=== PATIENT | male | born 1995 | race Caucasian/White ===

== ENCOUNTER 2019-08-10 00:55 | Inpatient (IN) | payer OTHER ==
[2019-08-10] VITALS (25 sets, daily range): BP systolic 97–145; BP diastolic 40–77
[~2019-08-10] VITALS: Ht 172.7 cm; Wt 76.2 kg
[2019-08-10] MEDS ORDERED: LORazepam Inj 2mg/ml 1ml IV ONE ×4 (01:00→01:30)
--- NOTE | 2019-08-10 01:00 | NUR ---
ED Nurse Note: Patient brought in by RA from home c/o seizure. As per EMS, seizure x3 at home witnessed by his s/o. Patient seized x2 during triage. Not in any distress. ERMD at bedside.
--- NOTE | 2019-08-10 01:05 | NUR ---
ED Nurse Note: IV line established. Blood specimen collected and sent to lab.
[2019-08-10] MEDS ORDERED: Phenytoin 1,000 MG in NS 275 ML IVPB ONE (01:30)
[2019-08-10 01:46] LABS: BASOPHILS % (AUTO) 1.5 % (0.0-2.0); EOSINOPHILS % (AUTO) 1.3 % (0.0-3.0); HEMATOCRIT 40.2 % (42.0-52.0); HEMOGLOBIN 14.4 G/DL (14.2-18.0); LYMPHOCYTES % (AUTO) 34.5 % (20.0-45.0); MEAN CORPUSCULAR VOLUME 90 FL (80-99); MONOCYTES % (AUTO) 11.2 % (1.0-10.0); NEUTROPHILS % (AUTO) 51.5 % (45.0-75.0); PLATELET COUNT 242 K/UL (150-450); RED BLOOD COUNT 4.45 M/UL (4.70-6.10); RED CELL DISTRIBUTION WIDTH 10.1 % (11.6-14.8); WHITE BLOOD COUNT 7.2 K/UL (4.8-10.8)
[2019-08-10 02:00] LABS: ANION GAP 12 mmol/L (5-15); BLOOD UREA NITROGEN 15 mg/dL (7-18); CALCIUM 8.3 MG/DL (8.5-10.1); CARBON DIOXIDE 25 MMOL/L (21-32); CHLORIDE 107 MMOL/L (98-107); CREATININE 1.3 MG/DL (0.55-1.30); POTASSIUM 3.8 MMOL/L (3.5-5.1); SODIUM 143 MMOL/L (136-145)
[2019-08-10 02:06] LABS: ALANINE AMINOTRANSFERASE 36 U/L (12-78); ALBUMIN 3.7 G/DL (3.4-5.0); ALBUMIN/GLOBULIN RATIO 1.1 (1.0-2.7); ALKALINE PHOSPHATASE 42 U/L (46-116); ASPARTATE AMINO TRANSFERASE 17 U/L (15-37); BILIRUBIN,TOTAL 0.2 MG/DL (0.2-1.0)
--- NOTE | 2019-08-10 03:15 | NUR ---
ED Nurse Note: Pt seen sleeping in bed. Not in any distress. no episode of seizure at this time. Will cont to monitor.
--- NOTE | 2019-08-10 03:59 | Emergency Room Report ---
History of Present Illness General Chief Complaint: Seizure Source: Patient, Friend, Medical Record Present Illness HPI 24-year-old male presents to ED status post seizure. Had a witnessed seizure at rehab facility. Initially partial but then per EMS was full tonic-clonic. Had 3 seizures in route. Was given 5 mg Versed. On arrival patient is postictal. Friend at bedside states that patient does have seizure history and history of anxiety. Takes Depakote and phenobarbital. Is compliant with his medications. No other alcohol or drug use per friend. No other aggravating relieving factors. Denies any other associated symptoms Allergies: Coded Allergies: AMOXICILLIN (Verified Allergy, Unknown, 08/03/19) Patient History Past Medical History: seizures, psych hx Past Surgical History: none Pertinent Family History: none Social History: Reports: drug use; Denies: smoking, alcohol use Immunizations: UTD Reviewed Nursing Documentation: PMH: Agreed; PSxH: Agreed Nursing Documentation-PMH Hx Hypertension: No Hx Pacemaker: No Hx Asthma: No Hx COPD: No Hx Diabetes: No Hx Cancer: No Hx Gastrointestinal Problems: Yes Hx Dialysis: No Hx Neurological Problems: Yes - SEIZURE Hx Cerebrovascular Accident: No Hx Seizures: Yes Review of Systems All Other Systems: limited Physical Exam Vital Signs Date Time Temp Pulse Resp B/P (MAP) Pulse Ox O2 Delivery O2 Flow Rate FiO2 08/10/19 00:52 98.4 123 26 133/67 (89) 93 Non-Rebreather 15.0 Sp02 EP Interpretation: reviewed, normal General Appearance: GCS 15, non-toxic, Postictal Head: normocephalic, atraumatic Eyes: bilateral eye normal inspection, bilateral eye PERRL ENT: hearing grossly normal, normal pharynx, no angioedema, normal voice Neck: full range of motion, supple/symm/no masses Respiratory: chest non-tender, lungs clear, normal breath sounds, speaking full sentences Cardiovascular #1: regular rate, rhythm, no edema Cardiovascular #2: 2+ carotid (R), 2+ carotid (L), 2+ radial (R), 2+ radial (L) , 2+ dorsalis pedis (R), 2+ dorsalis pedis (L) Gastrointestinal: normal bowel sounds, non tender, soft, non-distended, no guarding, no rebound Rectal: deferred Genitourinary: normal inspection, no CVA tenderness Musculoskeletal: back normal, normal range of motion, gait/station normal, non- tender Neurologic: other - postictal Psychiatric: other - postictal Reflexes: 3+ bicep (R), 3+ bicep (L), 3+ tricep (R), 3+ tricep (L), 3+ knee (R) , 3+ knee (L) Skin: no rash Lymphatic: no adenopathy Procedures Critical Care Time Critical Care Time i. I feel this is a highly complex case requiring extensive working including EKG/Rhythm strip, Xray/CT/US, Blood/urine lab work, repeat exams while in ED, and administration of strong opiates/narcotics for pain control, admission to hospital or close patient follow up. Total time: 45 min bedside evaluation and treatment excludes procedures (EKG). Reason for critical care: intractable seizures Possible complications: hypotension, hypertension, NE, shock, arrhythmias, metabolic acidosis, end organ damage, respiratory failure. Interventions: labs, IVFS, EKG, ativan multiple doses, dilantin loading dose Course: Presenting status post seizure. Multiple seizures in route. Given Versed. During assessment patient has multiple additional seizures. Given multiple doses of Ativan and loading dose of Dilantin before seizures finally subside. Consultations: nursing staff, EMS, family Performed by: Dr Brock Tolerated well condition = serious j. because of unstable vital signs this patient had a condition that could potentially threaten life or limb. I feel this is a critical patient who required my full attention while patient was considered critical. Total Critical Care Time excluding procedures was greater than 45 minutes Medical Decision Making Diagnostic Impression: Primary Impression: Intractable seizures ER Course Hospital Course 24-year-old M presents to ED status post seizure. Differential diagnosis includes- breakthrough seizure, alcohol abuse, noncompliance with medication Clinical course Patient placed on stretcher. Initial history and physical I ordered labs, IV fluids, EKG Patient has additional seizures in ED. Had been given Versed in field for 3 seizures in route. We gave multiple doses of Ativan without resolution. Gave additional Ativan along with loading dose Dilantin Labs-electrolytes okay, no leukocytosis noted, hemoglobin/hematocrit stable. EKG - NSR, no acute ischemic changes interpreted by me Case discussed with and he agreed to accept the patient to his service for further care and support. i. I feel this is a highly complex case requiring extensive working including EKG/Rhythm strip, Xray/CT/US, Blood/urine lab work, repeat exams while in ED, and administration of strong opiates/narcotics for pain control, admission to hospital or close patient follow up. Diagnosis - intractable seizure admitted to telemetry in serious condition Labs Test 08/10/19 01:25 White Blood Count 7.2 K/UL (4.8-10.8) Red Blood Count 4.45 M/UL (4.70-6.10) Hemoglobin 14.4 G/DL (14.2-18.0) Hematocrit 40.2 % (42.0-52.0) Mean Corpuscular Volume 90 FL (80-99) Mean Corpuscular Hemoglobin 32.3 PG (27.0-31.0) Mean Corpuscular Hemoglobin Concent 35.8 G/DL (32.0-36.0) Red Cell Distribution Width 10.1 % (11.6-14.8) Platelet Count 242 K/UL (150-450) Mean Platelet Volume 8.1 FL (6.5-10.1) Neutrophils (%) (Auto) 51.5 % (45.0-75.0) Lymphocytes (%) (Auto) 34.5 % (20.0-45.0) Monocytes (%) (Auto) 11.2 % (1.0-10.0) Eosinophils (%) (Auto) 1.3 % (0.0-3.0) Basophils (%) (Auto) 1.5 % (0.0-2.0) Sodium Level 143 MMOL/L (136-145) Potassium Level 3.8 MMOL/L (3.5-5.1) Chloride Level 107 MMOL/L (98-107) Carbon Dioxide Level 25 MMOL/L (21-32) Anion Gap 12 mmol/L (5-15) Blood Urea Nitrogen 15 mg/dL (7-18) Creatinine 1.3 MG/DL (0.55-1.30) Estimat Glomerular Filtration Rate > 60 mL/min (>60) Glucose Level 97 MG/DL (74-106) Calcium Level 8.3 MG/DL (8.5-10.1) Total Bilirubin 0.2 MG/DL (0.2-1.0) Aspartate Amino Transf (AST/SGOT) 17 U/L (15-37) Alanine Aminotransferase (ALT/SGPT) 36 U/L (12-78) Alkaline Phosphatase 42 U/L (46-116) Total Protein 7.1 G/DL (6.4-8.2) Albumin 3.7 G/DL (3.4-5.0) Globulin 3.4 g/dL Albumin/Globulin Ratio 1.1 (1.0-2.7) Acetaminophen Level < 2 MCG/ML (10-30) Valproic Acid (Depakene) Level 80 MCG/ML (50-100) Phenobarbital Level 9.9 ug/mL (15-40) Serum Alcohol < 3 mg/dL EKG Diagnostic Results Rate: tachycardiac Rhythm: NSR ST Segments: no acute changes ASA given to the pt in ED: No Rhythm Strip Diag. Results EP Interpretation: yes Rhythm: NSR, no PVC's, no ectopy Last Vital Signs Date Time Temp Pulse Resp B/P (MAP) Pulse Ox O2 Delivery O2 Flow Rate FiO2 08/10/19 01:00 97.9 102 20 132/77 97 Room Air 08/10/19 00:52 15.0 Status: improved Disposition: ADMITTED INPATIENT Condition: Serious Referrals: NOT CHOSEN IPA/,REFERRING (PCP) Robert Brock MD Aug 10, 2019 03:59
--- NOTE | 2019-08-10 04:04 | NUR ---
[facility] [phone] Jose- Adjunct Psychology Faculty Member [phone]
[2019-08-10] MEDS ORDERED: NKM (04:42)
--- NOTE | 2019-08-10 05:46 | NUR ---
ED Nurse Note: Pt seen sleeping in bed. No episodes of seizure at this time. VSS. Will cont to monitor.
--- NOTE | 2019-08-10 07:16 | NUR ---
HAND-OFF: Report given to Sheree LANDRUM. Endorsed plan of care.
--- NOTE | 2019-08-10 07:56 | NUR ---
ED Nurse Note: Telephone endorsement given to DIALLO Lainez for continuity of care.
--- NOTE | 2019-08-10 08:10 | NUR ---
TRANSFER TO FLOOR: Patient transferred to TELE as ordered, per ERMD . Report given to DIALLO RM. Belongings and medications given tO PT.
--- NOTE | 2019-08-10 08:10 | NUR ---
NURSE NOTES: Received report from DIALLO Bentley @ ER. Per Sheree, the patient got total dose of 12mg Ativan and Phenytoin IVPB. Asked the nurse whether the patient is safe to be transferred to tele as the patient's last seizure was @ 0650. Per Sheree, the patient is stable to be transferred. The patient's belongings checked with the patient and two nurses and signed by two nurses. Medical, surgical, allergy, and social history was not able to be taken from the patient as the patient is still drowsy and feeing of aura. Admitting EKG and medication reconciliation done @ ER. The patient has R AC 18G intact and patent. Initial vital signs were taken and will obtain admission order from Dr. Reid. The patient's skin is intact. Will continue plan of care.
[2019-08-10] MEDS ORDERED: LORazepam Inj 2mg/ml 1ml IV SCH ×2 (08:53→20:45)
[2019-08-10] MEDS ORDERED: LORazepam Inj 2mg/ml 1ml IV PRN ×3 (09:00→09:15)
--- NOTE | 2019-08-10 09:00 | NUR ---
HAND-OFF: Report given to DIALLO Carias @ ICU who is receiving nurse for the patient. The patient got safely transferred to [facility] with PETROLEUM INSPECTOR SUPERVISOR members support. The patient is transported with non-rebreather mask. No seizure noted upon transferring the patient. Full report given to DIALLO Carias. The patient's IV intact. The patient's skin intact. The patient belongings checked. Endorsed plan of care.
--- NOTE | 2019-08-10 09:00 | NUR ---
NURSE NOTES: 0820: pt having seizure, RN called for help, and to initiate CLOTH DOUBLING MACHINE OPERATOR, stayed with pt 0824: Vitals obtained: 116/71 BP, HR 70, SpO2 100% NC 5L, CLOTH DOUBLING MACHINE OPERATOR in room 0825: pt has another seizure, on monitor SR HR 87 seizure lasts for 2 mins 0827: Blood sugar is checked 86 0830: Pt is SR on monitor 0828: DIALLO Devi called Dr. Reid exchange to recommend transfer order and medication 0831: DIALLO Todd also contacted Dr. Reid to get transfer order and request medications 0831: CLOTH DOUBLING MACHINE OPERATOR and primary RN transferred patient to SDU room 236, pt placed on non-rebreather, attached to crash cart monitor, 0833: patient having another seizure, pt turned to right side, pt on monitor and non-rebreather 0837: pt experiencing another seizure, lasting 40 seconds; vitals signs: 128/57, 100% on non-rebreather, NSR, HR 65 0839: no seizure noted, pt able to move legs, able to turn body, pt becoming more alert 0840: Pt awake, team reorienting pt. 0841: Dr. Reid ordered transfer to SDU 0842: Patient able to verbally respond and asking for water. Non-rebreather removed 0845: Patient stating he is having an aura 0847: Patient having a seizure, pt turned on right side, CLOTH DOUBLING MACHINE OPERATOR team called back to room, pt placed on crash cart monitor, pt back on non-rebreather, seizure lasting 3 minutes. 0853: Dr. Reid in room ordered transfer of pt to ICU and gave order for Ativan 2mg IVP now, and Ativan 2mg IVP Q10M PRN for seizures, orders entered by DIALLO Devi. also ordered Dr. Cuadra for physician consult 0856: Ativan 2mg IVP once given 0857: Pt lightly shaking, pt transferred to ICU, followed by CLOTH DOUBLING MACHINE OPERATOR team and primary nurse
--- NOTE | 2019-08-10 09:10 | NUR ---
NURSE NOTES: Report recieved from DIALLO Lainez. Patient is awake and talkative, he is responding to verbal commands and articulates sentences accurate and with no slur, \ he is able to state his name and bithday, he is feeling tired and drowsy. states he need to be on a plane, and reoriented to being in a hospital and is in ICU, patient remains on nasal cannula at 4L/min saturtion at 100% with RR of 15-18. heart reate remains at 71 in sinus rhythm with BP of 108/50. patient has a right AC 22G IV saline lovks and another on the left ac 22G.
--- NOTE | 2019-08-10 11:30 | NUR ---
NURSE NOTES: Patient is awake and talkative, he denies any pain, he is able to utilize the cellular phone and spoke with this mother, she is on the way to the hospital, temperature is 97.5 orally.
--- NOTE | 2019-08-10 13:17 | NUR ---
NURSE NOTES: Dr. Nance at the bedside speaking with patient, ordered to place order for Lexapro 20mg to be given daily and begin this afternoon.
--- NOTE | 2019-08-10 13:56 | NUR ---
CASE MANAGEMENT: 08/09/2019 24 Y/O MALE FROM HOME BIBA CC: SEIZURE SI: INTRACTABLE SEIZURES 98.5 123 26 133/67 93% NRB @15 L ACETAMINOPHEN LEVEL ALCOHOL BLOOD SERUM DRUG SCREEN + BARBS, + BENZOS PHENOBARBITAL LEVEL VALPROIC LEVEL IS: SEIZURE PRECAUTIONS NACL 1L X1 ATIVAN 4 MG IV X3 DILANTIN 1000 MG IVPB ~~~~~TELEMETRY 2 EAST.
--- NOTE | 2019-08-10 14:15 | NUR ---
NURSE NOTES: Dr. Cuadra office called and notified of consultation placed by Dr. Reid, no verbal orders given at this time.
--- NOTE | 2019-08-10 14:24 | NUR ---
*-* INSURANCE *-* ALL CLINICALS AND REVIEWS HAVE BEEN FAXED TO: [employer] AUTH#[id number] PROTOTYPE MACHINIST PABLO Jain P:[phone] EXT [id number] F:[phone] (FAX ALL CLINICALS) Addendum: 08/10/19 at 1437 by BARRY MARQUEZ LVN LVN PROTOTYPE MACHINIST FABIOLA ANGULO T: [phone] EXT:[id number]
[2019-08-10] MEDS: LORazepam Inj 2mg/ml 1ml IV PRN ×3 (14:31→23:28)
--- NOTE | 2019-08-10 14:37 | NUR ---
TRANSFER UPDATE LEFT [facility] FOR [facility] ADOBE DEVELOPER REQUESTING ASSISTANCE WITH TRANSFER TO HIGHER LEVEL OF CARE AWAIT RETURN CALL AND INSTRUCTIONS
[2019-08-10] MEDS ORDERED: levETIRAcetam 1,000mg/NS100ml 100 ML IVPB SCH (15:00)
--- NOTE | 2019-08-10 15:20 | NUR ---
NURSE NOTES: several seizure noted lasting approximally 3 minutes, 2.5 minutes and 1 minute, all seizure are followed with a postictal state, he is confused but able to comminute with a slight delay but accurately. in all seizures they are noted to have pupils reactive and brisk at 5-6, he remains breathing with pauses and saturates at 94-99%,
--- NOTE | 2019-08-10 15:41 | NUR ---
NURSE NOTES: Another seizure noted to last approximately 60 secondas, was shaking for of entire body for 45 seconds and started to become more relaxed after 15 seconds, pupils remains reactive and brisk bilataerally. remains on nasal cannula at 4L/min with saturations at 97% and HR at 89. BP is 113/53 and RR are 30.
--- NOTE | 2019-08-10 18:00 | Consultation ---
DATE OF CONSULTATION: 08/10/2019 CONSULTING PHYSICIAN: Keanu Nance M.D. REFERRING PHYSICIAN: Tobin Reid M.D. HISTORY OF PRESENT ILLNESS: This is a 24-year-old male with a history of multiple medical issues including seizure disorder, psychiatric history who has been admitted to the hospital due to seizure, which was witnessed in the facility. The patient is not in the ICU. The patient was alert, was able to answer the questions appropriately. The patient is having anxiety, depressed mood, anhedonia, worthlessness. He has anxiety disorder. The patient is denying any suicide attempts in the past. Denies psychiatric hospitalization. PAST MEDICAL HISTORY: Seizure. ALLERGIES: Amoxicillin. SUBSTANCE ABUSE HISTORY: No known history of illicit drug use or alcohol. MENTAL STATUS EXAMINATION: Alert, oriented times self, place, situation, and date. Mood is anxious. Affect is constricted, congruent with mood. Thought process is concrete. Thought content, no suicidal or homicidal ideation. Cognition is impaired. Insight and judgment is impaired. LABORATORY DATA: The labs are positive for benzodiazepine and barbiturates. ASSESSMENT: [place] I Anxiety disorder. Rule out major depressive disorder. [place] II Deferred. [place] III Seizure. [place] IV Low. [place] V 50. PLAN: 1. The patient is reluctant to be on SSRI's. 2. Continue Ativan p.r.n. 3. The patient should be discharged when medically cleared. 4. We will start the patient on mirtazapine. Keanu Nance M.D. DR: MAGDA JOB#: [id number] CC:
--- NOTE | 2019-08-10 19:30 | History and Physical Report ---
DATE OF ADMISSION: 08/10/2019 HISTORY OF PRESENT ILLNESS: This is elderly 24-year-old male who came to the emergency room for having drug abuse and was found altered mental status and having recurrent seizure. The patient was tried to given Ativan. The patient is nonverbal, lethargic. Resuscitation team was at bedside. PAST MEDICAL HISTORY: Drug abuse. Drug screen positive for barbiturates and cocaine. PHYSICAL EXAMINATION: VITAL SIGNS: Current blood pressure 110/61, pulse 77, respirations 16, and temperature 98.5. HEENT: Eyes are closed. Pupils are slightly dilated. NECK: Supple. CHEST: Bilaterally decreased breath sounds. CARDIOVASCULAR: Regular rhythm. ABDOMEN: Soft. Positive bowel sounds, nontender. EXTREMITIES: No edema. NEUROLOGICAL: Lethargic and having recurrent seizure. GENITOURINARY: Deferred. LABORATORY AND DIAGNOSTIC DATA: White count 7.2, hemoglobin 14, hematocrit 40, platelets are 242. Chemistry panel is unremarkable. BUN 15, creatinine 1.3, sodium 143, potassium 3.8. LFTs are normal. ASSESSMENT AND PLAN: 1. Altered mental status. 2. Acute recurrent seizure. PLAN: We will admit . Ativan 2 mg IV q.4h . Consider Neurology consult and Psych consult. I just heard from the nurse that the patient is more awake and wants food. Ralph Reid M.D. DR: Clarice JOB#: [id number] CC:
--- NOTE | 2019-08-10 19:44 | NUR ---
NURSE NOTES: Received patient from DIALLO Carias. Will continue plan of care.
--- NOTE | 2019-08-10 19:45 | NUR ---
HAND-OFF: Report given to DIALLO Joshi.
--- NOTE | 2019-08-10 20:00 | NUR ---
NURSE NOTES: Patient is awake and alert. Continues to have seizures lasting 3-8 minutes. 2mg Ativan given but not effective. Left page and urgent message for Dr. Reid for additional orders.
[2019-08-10] MEDS: levETIRAcetam 1,000mg/NS100ml 100 ML IVPB SCH (20:15)
--- NOTE | 2019-08-10 20:37 | NUR ---
NURSE NOTES: Left urgent message for Dr. Reid's urgent line for patient's continuous seizures. Awaiting reply.
--- NOTE | 2019-08-10 20:40 | NUR ---
NURSE NOTES: Patient continues to have seizures. EEG is being done, attempted to contact Dr. Cuadra to see patient and/or for orders. Also left an urgent message to Dr. Pritchett covering for Dr. Cuadra. Awaiting call back.
--- NOTE | 2019-08-10 20:52 | NUR ---
NURSE NOTES: Spoke with Dr. Marr, he orders 2mg Ativan Q2h. Also Dr. Reid ordered Dilantin 500mg IV. Orders are in. Patient continues to have seizures. Bed low and locked. Call light within reach. Suctioning provided. Mother at bedside.
[2019-08-10] MEDS ORDERED: levETIRAcetam 500mg/NS100ml 100 ML IVPB SCH (21:00)
[2019-08-10] MEDS ORDERED: Phenytoin 500 MG in NS 110 ML IVPB ONE (21:00)
--- NOTE | 2019-08-10 22:00 | NUR ---
NURSE NOTES: Dilantin 500mg IV running. Having EEG performed. No seizures at the moment.
[2019-08-11] VITALS (27 sets, daily range): BP systolic 90–139; BP diastolic 35–81
--- NOTE | 2019-08-11 | NUR ---
NURSE NOTES: Patient is started to have seizures again; lasting 3-8 minutes per episode. Another 2mg Ativan given. Mother at bedside. Provided safety measures. Will continue to monitor.
[2019-08-11] MEDS: LORazepam Inj 2mg/ml 1ml IV PRN ×7 (00:37→19:52)
--- NOTE | 2019-08-11 02:00 | NUR ---
NURSE NOTES: Patient continues to have seizures. Dr. Reid is aware. New orders of Ativan are in. Will continue to monitor. Mother remains at bedside. Safety measures in place.
--- NOTE | 2019-08-11 02:14 | NUR ---
NURSE NOTES: Called and Spoke with Franklin at this time. Notified him that Patient continues to have Seizures. Patient is already on 2 mg Ativan Q2hr, scheduled Keppra 1,000mg Q12hrs, Dilantin 500mg has already been given as he previously ordered. MD Ordered to Change Ativan order. New order, Ativan 3mg Q 2HR for seizures. Orders read back and confirmed by MD.
--- NOTE | 2019-08-11 04:00 | NUR ---
NURSE NOTES: No seizures at this time since 0230. Patient is now resting comfortably. Vital signs are stable. Will continue to monitor. Mother in waiting room
[2019-08-11 05:41] LABS: BASOPHILS % (AUTO) 0.9 % (0.0-2.0); EOSINOPHILS % (AUTO) 1.1 % (0.0-3.0); HEMATOCRIT 41.2 % (42.0-52.0); HEMOGLOBIN 14.4 G/DL (14.2-18.0); MEAN CORPUSCULAR VOLUME 92 FL (80-99); MONOCYTES % (AUTO) 7.1 % (1.0-10.0); PLATELET COUNT 224 K/UL (150-450); RED BLOOD COUNT 4.47 M/UL (4.70-6.10); RED CELL DISTRIBUTION WIDTH 10.6 % (11.6-14.8); WHITE BLOOD COUNT 10.6 K/UL (4.8-10.8)
--- NOTE | 2019-08-11 06:00 | NUR ---
NURSE NOTES: Patient experienced 2 episode of seizures around 0530 back to back. These episode lasted less than minute each and movement was as severe as previous. Patient was able to get some sleep. As of 0600, patient is more awake and alert. Will continue to monitor.
[2019-08-11 06:40] LABS: ALANINE AMINOTRANSFERASE 36 U/L (12-78); ALBUMIN 3.7 G/DL (3.4-5.0); ALBUMIN/GLOBULIN RATIO 1.1 (1.0-2.7); ALKALINE PHOSPHATASE 45 U/L (46-116); ANION GAP 11 mmol/L (5-15); ASPARTATE AMINO TRANSFERASE 17 U/L (15-37); BILIRUBIN,TOTAL 0.4 MG/DL (0.2-1.0); BLOOD UREA NITROGEN 14 mg/dL (7-18); CALCIUM 8.6 MG/DL (8.5-10.1); CARBON DIOXIDE 24 MMOL/L (21-32); CHLORIDE 106 MMOL/L (98-107); CREATININE 1.2 MG/DL (0.55-1.30); POTASSIUM 3.8 MMOL/L (3.5-5.1); SODIUM 141 MMOL/L (136-145)
--- NOTE | 2019-08-11 07:28 | CDS Physician Query ---
Clarification is required for compliance, coding accuracy, and to reflect severity of illness for this patient Dear Date: 08/11/2019 Skein Bleacher/CDS Name: Lance Turner This is elderly 24-year-old male who came to the emergency room for having drug abuse and was found altered mental status and having recurrent seizure. The patient was tried to given Ativan. The patient is nonverbal, lethargic. Resuscitation team was at bedside. LABORATORY DATA: The labs are positive for benzodiazepine and barbiturates. "Altered Mental Status" documented in H&P Please indicate the nature and chronicity of the condition below: [] Metabolic Encephalopathy [] Toxic Encephalopathy [] Toxic - Metabolic Encephalopathy [] Encephalopathy, Other [] Dementia with Delirium [] Hypoxic encephalopathy [] Posterior reversible encephalopathy syndrome [] Other: [] Not Applicable Present on Admission: [] Yes [] No [] Clinically Undetermined Physician signature Date Please also document in your Progress Notes and/or Discharge Summary and indicate if the condition was present on admission. MTDD
--- NOTE | 2019-08-11 07:30 | NUR ---
HAND-OFF: Report given to DIALLO Barrera.
--- NOTE | 2019-08-11 07:31 | NUR ---
NURSE NOTES: RECEIVED PATIENT FROM Anuel LIZARRAGA RN. PATIENT IS LYING IN BED, ASLEEP. HOOKED TO TECHNICAL IMPLEMENTATION LEAD. ON ROOM AIR. NO SIGNS OF RESPI DISTRESS OF THE MOMENT. NO NOTED SEIZURE ACTIVITY. HE USES URINALS. PIV'S ON R AC AND R FA G28, TKO. CALL LIGHT WITHIN REACH. BED AT LOWEST POSITION, SIDE RAILS UP AND PADDED. AWAITING BED FOR TRANSFER TO [facility]. WILL CONTINUE TO MONITOR.
--- NOTE | 2019-08-11 08:08 | NUR ---
NURSE NOTES: NOTED SEIZURE ACTIVITY. HR 107-120, RR 22, BP 92/51, SATING AT 97%. DUE IV MEDS WAS GIVEN. VSS. NO SIGNS OF RESP DISTRESS OF THE MOMENT. WILL CONTINUE TO MONITOR. Addendum: 08/11/19 at 0819 by ZURI WRIGHT RN NURSE NOTES: WHEN ASKED TO EXTEND HIS R ARM, FOLLOWS COMMAND AND R ARM STOPPED SHAKING.
[2019-08-11] MEDS: levETIRAcetam 1,000mg/NS100ml 100 ML IVPB SCH ×2 (08:20→20:20)
--- NOTE | 2019-08-11 09:13 | NUR ---
NURSE NOTES: ANOTHER SEIZURE ACTIVITY NOTED FOR ABOUT 15 SECS. VSS. HR 91, RR 18, BP 90/35, SATING AT 98% ON ROOM AIR. PUPILS REACTIVE. NO SIGNS OF RESPI DISTRESS OF THE MOMENT. THE MOTHER SEEN AT THE BEDSIDE. WILL CONTINUE TO MONITOR.
--- NOTE | 2019-08-11 11:30 | NUR ---
NURSE NOTES: C/O HARD TO PEE. BLADDER SCANNED, NOTED 400ML OF URINE. WARM COMPRESS APPLIED. WILL CONTINUE TO MONITOR.
--- NOTE | 2019-08-11 11:43 | NUR ---
NURSE NOTES: PATIENT WAS ABLE TO PEE ABOUT 400ML OF URINE.
[2019-08-11] MEDS ORDERED: REGLAN10 MG ORAL (12:08)
[2019-08-11] MEDS ORDERED: ALBUTEROL SULF8.5 GM INH (12:08)
[2019-08-11] MEDS ORDERED: DEPAKOTE250 MG PO (12:08)
[2019-08-11] MEDS ORDERED: LEXAPRO20 MG ORAL (12:08)
[2019-08-11] MEDS ORDERED: TRAZODONE HCL50 MG ORAL (12:08)
[2019-08-11] MEDS ORDERED: CBD (12:08)
[2019-08-11] MEDS ORDERED: PROTONIX40 MG ORAL (12:08)
[2019-08-11] MEDS ORDERED: PROPRANOLOL HCL40 MG ORAL (12:08)
[2019-08-11] MEDS ORDERED: LIBRIUM10 MG ORAL (12:08)
[2019-08-11] MEDS ORDERED: ROBAXIN (12:08)
--- NOTE | 2019-08-11 12:10 | NUR ---
NURSE NOTES: NOTED ANOTHER JERKING EPISODE THAT LASTED FOR ABOUT 20SECS. VSS. PUPILS REACTIVE. VITALSIGNS STABLE. NO SIGNS OF RESPIRATORY DISTRESS OF THE MOMENT. WILL CONTINUE TO MONITOR.
--- NOTE | 2019-08-11 13:28 | NUR ---
MATERIALS BUYER CONSULT Pt was admitted to ICU on 08/10/2019. Pt present as A&O4x and cooperative. Pt resides w/ his family at [address] [facility], [place], [place], [address]. Pt was at [facility]TOH rehab facility in [place], [place]. Pt recently completed the rehab program. Pt has hx of ETOH abuse and denies other substance abuse. Pt declined to receive counseling/tx intervention/resources on substance abuse. Pt is the primary decision maker. Pt is single, never , unemployed and has no children. Pt receives no income/welfare benefit and his family financially supports him at this time. Pt has hx of Depression and hx of SI when he was 19 y/o. Pt currently denies SI/HI. Emergency contact is provided; pt's father Shawn Amaya [phone]. Pt plans to return [place] via airplane upon DC. Pt did not share any concern/issue. Signed: 08/11/19 at 1334 by MARY GRACE NUNN <Co-Signature Required>
--- NOTE | 2019-08-11 13:40 | NUR ---
NURSE NOTES: SEEN AND EXAMINED BY DR RONDON. NEW ORDERS MADE. WILL CONTINUE TO MONITOR.
--- NOTE | 2019-08-11 13:46 | NUR ---
NURSE NOTES: SEEN AND EXAMINED BT
--- NOTE | 2019-08-11 13:46 | NUR ---
NURSE NOTES: PATIENT HAS ANOTHER JERKING EPISODE. PUPILS REACTIVE. DUE MEDS GIVEN. VSS. NO SIGNS OF DISTRESS OF THE MOMENT.
--- NOTE | 2019-08-11 13:58 | NUR ---
NURSE NOTES: JEROME FERRARI CALLED AND INFORMED DR LEO FOR THE CONSULT.
[2019-08-11] MEDS ORDERED: Isovue-300 100ml vial INJ PRN (14:45)
[2019-08-11] MEDS ORDERED: LORazepam Inj 2mg/ml 1ml IV SCH (15:00)
[2019-08-11] MEDS ORDERED: LORazepam Inj 2mg/ml 1ml ONE (15:23)
--- NOTE | 2019-08-11 15:35 | NUR ---
NURSE NOTES: BROUGHT PATIENT DOWN FOR CT SCAN. CT SCAN DONE. ENROUTE TO ICU, PATIENT NOTED TO BE JERKING. ER CHARGE NURSE OVERRIDE ATIVAN 2MG TO BE GIVEN IV. VSS. HOOKED TO NRM. BACK TO ICU, HOOKED TO FLOATING LABOR GANG SUPERVISOR. VSS. NO SIGNS OF DISTRESS OF THE MOMENT. AWAITING RESULT OR CT SCAN. WILL CONTINUE TO MONITOR.
--- NOTE | 2019-08-11 15:57 | Diagnostic Imaging Report ---
Indications: Seizure Technique: Spiral acquisitions obtained through the brain. Angled axial and coronal 5 x 5 mm slices were reconstructed. Total dose length product 1363 mGycm. CTDI vol(s) 60 mGy. Dose reduction achieved using automated exposure control Comparison: None. Findings: No acute intracranial hemorrhage or edema. No mass effect nor midline shift. Normal guaman-white differentiation. Normal size ventricles and extra-axial CSF spaces. Visualized orbits are unremarkable. The calvarium is intact. Sinuses are clear. The mastoids are clear. Impression: Negative The CT scanner at [facility] is accredited by the [employer] and the scans are performed using protocols designed to limit radiation exposure to as low as reasonably achievable to attain images of sufficient resolution adequate for diagnostic evaluation.
--- NOTE | 2019-08-11 16:30 | NUR ---
NURSE NOTES: NOTED PATIENT IS JERKING. HOOKED TO NRM AT 15L. SATING AT 100%. SUCTIONED SECRETION. WILL CONTINUE TO MONITOR.
--- NOTE | 2019-08-11 17:41 | NUR ---
NURSE NOTES: SEEN AND EXAMINED BY DR LEO. WILL CONTINUE TO MONITOR.
--- NOTE | 2019-08-11 18:30 | NUR ---
NURSE NOTES: NOTED SEIZURE ACTIVITY. DR LEO SEEN AT THE BEDSIDE AND ORDERED TO GIVE ANOTHER DOSE OF IV KEPPRA NOW.
[2019-08-11] MEDS ORDERED: levETIRAcetam 1,000mg/NS100ml 100 ML IVPB ONE (18:45)
--- NOTE | 2019-08-11 19:07 | NUR ---
HAND-OFF: Report given to Netta Bryant RN. Lab taken and for sent out. No signs of distress as of the moment. Endorsed accordingly.
--- NOTE | 2019-08-11 19:30 | NUR ---
NURSE NOTES: SBAR from Leoncio LANDRUM. Patient is awake and oriented at this time. HR is 88 NSR, Blood pressure is stable at this time. SpO2 is 100%. Patient is on room air. Temperature is 100.0F. No acute distress at this time. NAD at this time. PIV on the left AC 18G. No acute distress at this time. Seizure precautions, side rails padded.
[2019-08-11] MEDS ORDERED: Lidocaine 1% Plain 30 ml INJ ONE (19:45)
--- NOTE | 2019-08-11 19:45 | NUR ---
NURSE NOTES: Patient aving seizures at this time. Dr. Orellana at bedside. 2mg Ativan IVP was given. Vitals remains stable, patient is on non-rebreather mask at 100%. Pupils dilated and reactive to light, reflexes are reactive.
--- NOTE | 2019-08-11 20:30 | NUR ---
NURSE NOTES: Patient seizures continue on and off. Regains conciseness immediate after seizures. Patient turns to side when seizure about to occur. Airway is not compromised thru seizure activity
[2019-08-11] MEDS ORDERED: Depakote ER 500mg tab ORAL SCH (21:00)
--- NOTE | 2019-08-11 21:00 | NUR ---
NURSE NOTES: Patient is awake at this time, all due medications given. Vitals signs is stable, patient on room air and breathing normal. Spo2 is 100%. Patient talkative with family member. NAD.
--- NOTE | 2019-08-11 21:40 | NUR ---
NURSE NOTES: Patient had seizure activity for about 20minutes from 2128-2235, convulsion like seizures. During seizure activity patients was on his side and on Non-rebreather mask at 15L. Blood pressure and HR remains stable. Patient was not hurt, staff remained at bedside throughout the whole time. Suction was readily available. During seizure activity patients airway was not compromised. Patients skin color remained normal, cap refill less than 3 seconds.
--- NOTE | 2019-08-11 22:00 | NUR ---
NURSE NOTES: Patient is awake and oriented at this time. Patients Vitals are stable and breathing is normal. Alert and oriented to time, place, date and person. Awake and talkative.
[2019-08-12] VITALS (24 sets, daily range): BP systolic 62–126; BP diastolic 40–80
--- NOTE | 2019-08-12 | NUR ---
NURSE NOTES: Patient is sleeping at this time. Vitals are stable and no seizure activity at this time. Afebrile.
--- NOTE | 2019-08-12 02:00 | NUR ---
NURSE NOTES: Patient is sleeping at this time. Vitals are stable and no seizure activity at this time. Afebrile.
--- NOTE | 2019-08-12 02:15 | History and Physical Report ---
DATE OF ADMISSION: 08/10/2019 HISTORY OF PRESENT ILLNESS: This is a young white male who came to the emergency room for recurrent seizure. The patient also has been taking drugs, history of drugs, has been in drug rehabilitation program. The patient physically doing better, but his nurse has claimed he had a seizure this morning. An EEG is done. Waiting for Neuro consult. PHYSICAL EXAMINATION: VITAL SIGNS: Stable. CHEST: Bilaterally clear. CARDIOVASCULAR: Regular rhythm. ABDOMEN: Soft. EXTREMITIES: CCE. NEUROLOGICAL: No focal deficit. ASSESSMENT: 1. Recurrent seizure. 2. History of substance abuse. PLAN: We will continue Keppra. Continue current medical treatment. Ralph Reid M.D. DR: ROSSANA JOB#: [id number] CC:
--- NOTE | 2019-08-12 04:00 | NUR ---
NURSE NOTES: Patient awake and oriented at this time. Vitals are stable No seizure activity at this time. Watching television and playing on the phone.
[2019-08-12] MEDS: LORazepam Inj 2mg/ml 1ml IV PRN ×2 (04:23→08:49)
[2019-08-12 06:01] LABS: ANION GAP 7 mmol/L (5-15); BLOOD UREA NITROGEN 10 mg/dL (7-18); CALCIUM 8.8 MG/DL (8.5-10.1); CARBON DIOXIDE 29 MMOL/L (21-32); CHLORIDE 106 MMOL/L (98-107); CKMB < 0.5 NG/ML (0.0-3.6); CREATININE 1.2 MG/DL (0.55-1.30); POTASSIUM 4.3 MMOL/L (3.5-5.1); SODIUM 142 MMOL/L (136-145)
--- NOTE | 2019-08-12 06:04 | NUR ---
NURSE NOTES: Patient is sleeping at this time. Vitals are stable and no seizure activity at this time. Afebrile.
--- NOTE | 2019-08-12 06:45 | Progress Note ---
DATE: 08/11/2019 SUBJECTIVE: The patient is asleep, irritable, no behavior issues noted, depressed mood, anhedonia, worthlessness. Later, during the day, the patient has had seizure. Neurology saw him today. He spoke to the mom . PAST MEDICAL HISTORY: The patient has many health issues throughout his life. He is depressed. MENTAL STATUS EXAMINATION: The patient is alert and oriented times self, place, situation, and date. Mood is depressed. Affect is constricted, congruent with mood. Thought process is concrete. Thought content, no suicidal or homicidal ideation. ASSESSMENT: 1. Major depressive disorder. 2. Anxiety. PLAN: 1. We will continue current medications. 2. Provide the patient with reality orientation and supportive therapy. Keanu Nance M.D. DR: MACARIO JOB#: [id number] CC:
[2019-08-12 06:47] LABS: BASOPHILS % (AUTO) 1.8 % (0.0-2.0); EOSINOPHILS % (AUTO) 3.1 % (0.0-3.0); HEMATOCRIT 40.9 % (42.0-52.0); HEMOGLOBIN 14.8 G/DL (14.2-18.0); LYMPHOCYTES % (AUTO) 32.5 % (20.0-45.0); MEAN CORPUSCULAR VOLUME 92 FL (80-99); MONOCYTES % (AUTO) 10.8 % (1.0-10.0); NEUTROPHILS % (AUTO) 51.7 % (45.0-75.0); PLATELET COUNT 247 K/UL (150-450); RED BLOOD COUNT 4.45 M/UL (4.70-6.10); RED CELL DISTRIBUTION WIDTH 10.6 % (11.6-14.8); WHITE BLOOD COUNT 7.2 K/UL (4.8-10.8)
--- NOTE | 2019-08-12 07:27 | NUR ---
NURSE NOTES: Pt received from DIALLO [place] in stable condition without respiratory distress. Pt is asleep in bed, wakes up when called by name, SELINAOxLaura, no seizure activity noted at this time, PERRLA +, pupils 4 mm bilaterally. Pt noted in SR on monitoring specialist with HR 89 bpm BP 111/72 mmHg. Radial and dorsalis pedis pulses 2+ bilaterally. Pt is cool to touch. All lung lobes CTA upon auscultation. SpO2 96% RR 16 on RA. Non-rebreather mask and suction canister at bedside for seizure precaution. Abdomen is soft and flat, no c/o tenderness. Urinal at bedside. No skin alterations noted at this time. Pt has a RAC 18g IV saline locked. Bed in lowest position, alarm on, side rails up x 3 and padded per seizure precaution, call light within reach. Will continue to monitor. Addendum: 08/12/19 at 0842 by Francoise Ward RN Late entry: pt able to follow commands, speech is coherent, no acute distress noted.
--- NOTE | 2019-08-12 07:27 | NUR ---
HAND-OFF: Report given to Ed LANDRUM.
[2019-08-12] MEDS: levETIRAcetam 1,000mg/NS100ml 100 ML IVPB SCH (08:50)
[2019-08-12] MEDS ORDERED: PHENobarbital 32.4mg tab ORAL SCH ×2 (09:00→21:00)
[2019-08-12] MEDS ORDERED: Depakote ER 500mg tab ORAL SCH ×2 (09:00→21:00)
--- NOTE | 2019-08-12 10:15 | NUR ---
NURSE NOTES: Dr Reid at bedside discussing plan of care with pt's mother (Brinda) and social sciences instructor Layne. [facility] per Dr. Orellana's clearance. Awaiting Dr Orellana to see pt today.
--- NOTE | 2019-08-12 11:02 | NUR ---
NURSE NOTES: Pt observed shaking in bed. VS as follows: HR 96 bpm RR 32 BP 112/73 mmHg spO2 100%. Pt placed on left side with non-rebreather mask on at 15L O2. Suction canister at bedside, no notable secretions at this time. Body movements lasted for 1 minute.
--- NOTE | 2019-08-12 11:11 | NUR ---
Social Work This SW met with patients mother and primary (Dr. Reid). Family are aware patient has been having Pseudo-Seizures. Mother confirmed that patient will follow up with Psychiatry in [place] (Dr. Nance has been following here). Mother in agreement with discharge tomorrow and will assist with plane back to [place]. Emotional support provided.
--- NOTE | 2019-08-12 11:21 | NUR ---
NURSE NOTES: Pt requested to be seen by a rabbi. Spoke to Layne (family welfare social work professor) and let her know. Layne will search for and contact an available rabbi to come see pt. Discussed plan with pt and mother at bedside.
--- NOTE | 2019-08-12 11:36 | NUR ---
SS note Patient requesting a Rabbi to come and meet with him. This SW spoke with [facility]: Rabbi Katja Mccormick ([phone]) who plans to meet with patient today. Christi, ICU weather reporter informed.
--- NOTE | 2019-08-12 12:06 | NUR ---
NURSE NOTES: Pt's mother (Brinda) at bedside, was explaining to pt that he will be transferred to [facility] floor following a discussion with Dr. Marr. She told the pt "someone else who is sicker will need this bed." The pt immediately responded to mother stating "I think I will get a seizure right now." The pt started to shake his body. Pupils noted 4mm bilaterally and responsive to light. Pt did not respond to name. VS noted: HR 110-120 bpm BP 122/78 mmHg SpO2 100% RR 36 Temp 98.8 ax. Pt placed on 16 L O2 via Non-rebreather mask. No secretions noted from oral cavity. Side rails padded, suction at bedside. Will continue to monitor.
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
--- NOTE | 2019-08-12 12:42 | NUR ---
COMMISSIONING ENGINEERUTILITIES SERVICE INVESTIGATOR SI: SEIZURE T. 97.5 HR 122 RR 32 B/P 106/59 RA 100% HEAD CT= NEGATIVE IS: KEPPRA IV PHENOBARBITAL DEPAKOTE LEXAPRO SEIZURE PRECAUTIONS MED/SURG STATUS
--- NOTE | 2019-08-12 12:46 | NUR ---
NURSE NOTES: Pt just stopped shaking body. VS noted: BP 113/71 mmHg RR 23 SpO2 100% HR 95bpm SR to waste management specialist. Pt opens eyes when called by name. No acute distress noted. Mother at bedside.
--- NOTE | 2019-08-12 13:00 | NUR ---
NURSE NOTES: Pt observed choking on lunch. A chewed piece of salmon was found on his shirt, another piece in his mouth while his head was noted swinging back and forth. The food was removed from his mouth and oral cavity suctioned. Pt awake and AAOx4. SpO2 96% RR 18. Mother at bedside. Lunch tray removed and pt informed that it is not safe for him to continue eating at this time. Will continue to monitor.
--- NOTE | 2019-08-12 13:20 | NUR ---
NURSE NOTES:Dr Marr at bedside, discussed with him that pt's BP dropped to 69 systolic and he was found choking. Order placed for CLD at this time. Pt still clear to be transferred to [facility]. Awaiting bed. No acute distress noted at this time. Mother at bedside. Addendum: 08/12/19 at 1334 by Francoise Ward RN Amendment: pt clear to be transferred to [facility] (not [facility]) Addendum: 08/12/19 at 1452 by Francoise Ward RN Late entry: BP rechecked. 108/80 at 1307 and charted (See VS intervention).
--- NOTE | 2019-08-12 15:05 | NUR ---
NURSE NOTES: BP noted 88/40 while pt was asleep. Pt woken up and BP rechecked now 110/53. Pt is awake, asymptomatic, no acute distress noted, AAOx4, able to converse and follow commands.
--- NOTE | 2019-08-12 16:31 | NUR ---
NURSE NOTES: Spoke with Dr. Orellana to let him know pt's mother (Brinda) would like to speak to him today. He said he will be at the hospital this evening. I let him know pt is being transferred to telemetry unit.
--- NOTE | 2019-08-12 16:45 | Electroencephalogram ---
DATE OF PROCEDURE: 08/10/2019 REQUESTING PHYSICIAN: Tobin Reid M.D. READING PHYSICIAN: Elton Cuadra M.D. PROCEDURE PERFORMED: Electroencephalogram. HISTORY: This EEG was performed on a 24-year-old gentleman with a history of a psychiatric illness, who was having seizure-like phenomena. The purpose of this EEG was to evaluate the patient for ongoing ictal or interictal phenomena. TECHNICAL NOTE: This EEG was performed on a Section 101 Acquisition Unit with electrodes placed on the scalp according to the International 10-20 system. A [id number]-[id number] montage was used. A limited number of electrodes was utilized because the patient was moving and thus the broadband technician was unable to place a complete set of electrodes. OBSERVATIONS: In the reportedly awake but agitated state, the background activity consisted of 4-5 Hz theta, 1.5-2 Hz delta, and superimposed 22-24 Hz beta activity. From goyd-dj-fend, high amplitude, generalized, but anteriorly predominant 16-18 Hz spindles were noted. No definite focal abnormalities or epileptiform discharges were seen. IMPRESSION: This is an abnormal EEG characterized by: 1. Slowing of the background in the theta and delta range in the reportedly awake state. 2. The presence of high-amplitude, generalized 16-18 Hz spindles, consistent with drug spindles. COMMENT: This study is consistent with an encephalopathy of a moderate degree. There is a high probability that this is toxic encephalopathy as evidenced by the drug spindles. Clinical correlation is recommended. Elton Cuadra M.D., M.S.P.H. Clinical Neurophysiologist DR: ADA JOB#: [id number] CC: NITHYA
--- NOTE | 2019-08-12 17:09 | NUR ---
*-* INSURANCE *-* ALL CLINICALS AND REVIEWS HAVE BEEN FAXED TO: [employer]#[id number] [employer] T: [phone] EXT:[id number] F:[phone] (FAX ALL CLINICALS)
--- NOTE | 2019-08-12 17:45 | NUR ---
TRANSFER TO FLOOR: Patient transferred to tele unit in stable condition, per Dr. Marr. Report given to DIALLO Strong. No seizure activity noted at this time. AAOx4 with no acute distress, on laboratory monitor, noted SR. Non-rebreather mask and suction canister at bedside. Mother is accomanying pt. Dr Orellana also at bedside discussing plan of care with mother and receiving RN Ligia. Per Dr. Orellana, pt is cleared to be discharged at 0700 on 08/13/2019 per mother's request- mother states "we have a flight to catch in the morning and we need to leave by 0730." Pt belongings remained at bedside and reviewed with Ligia and pt's mother.
[2019-08-12] MEDS ORDERED: Isovue-300 100ml vial INJ PRN (18:00)
[2019-08-12] MEDS ORDERED: LORazepam Inj 2mg/ml 1ml IV PRN ×2 (18:00)
--- NOTE | 2019-08-12 18:00 | NUR ---
NURSE NOTES: Received pt from BANDING MACHINE OPERATOR KELLY. Pt is A&O X4. Pt is in RA, no SOB or acute respiratory distress noted. pt has intact iv access RAC 18G SL. Pt"s mom is on bed side. pt is on continues heart monitoring. Dr LEO is on bed side. pt asks for Ativan for anxiety, Dr LEO is aware. suction and nonrebreather mask is on bed side. skin is intact. all belongings are with pt and mom. all needs attended, bed is locked and is in the lowest position, call light within easy reach. will continue to monitor.
[2019-08-12] MEDS ORDERED: KEPPRA LIQ100 MG/1 M ORAL (18:09)
[2019-08-12] MEDS ORDERED: PHENOBARBITAL32.4 MG PO (18:10)
[2019-08-12] MEDS ORDERED: DEPAKOTE500 MG PO (18:13)
[2019-08-12] MEDS ORDERED: LEXAPRO20 MG ORAL (18:14)
--- NOTE | 2019-08-12 18:40 | NUR ---
NURSE NOTES: pt has one episode sodu seizure, RN and CN YELENA are bed side, pads are around the bed pt is aside, applied oxygen, and after 30sec finished. heart monitoring is normal now. will continue to monitor.
[2019-08-12] MEDS: LORazepam 1mg tab ORAL PRN (18:48)
--- NOTE | 2019-08-12 18:56 | NUR ---
NURSE NOTES: I notified Md Orellana of seizure no new orders. To continue with discharge.
--- NOTE | 2019-08-12 19:26 | NUR ---
HAND-OFF: Report given to BRIAN LANDRUM. Pt is awake A&O x4 and stable. mom is on bed side. endorsed [facility] 07 AM tomorrow morning.
--- NOTE | 2019-08-12 20:00 | NUR ---
NURSE NOTES: RECEIVED PATIENT LYING IN BED, AWAKE, ALERT/ORIENTED X4, VERBALLY RESPONSIVE, DENIES PAIN. NO SIGNS AND SYMPTOMS OF ACUTE CARDIO RESPIRATORY DISTRESS/SHORTNESS OF BREATH, NO EDEMA NOTED. S/P INTRACTABLE SEIZURES, SEIZURE PRECAUTIONS OBSERVED, ON CLINICAL LAW PROFESSOR/SINUS RHYTHM. IV INTACT TO RIGHT AC, SLIGHTLY REDDENED, PATIENT DENIES PAIN WHEN FLUSHED, DOES NOT WANT RESITED AT THIS TIME, WILL CONTINUE TO MONITOR. NO COMPLAINTS OF GI DISCOMFORT, NO NAUSEA/VOMITING. SIDE RAILS UP X2 FOR MOBILITY, BED IN LOWEST POSITION FOR SAFETY, ENCOURAGED PATIENT TO UTILIZE CALL LIGHT FOR ASSISTANCE, VERBALIZED UNDERSTANDING. DISCHARGE HOME IN AM WITH MOTHER.
--- NOTE | 2019-08-12 20:01 | Progress Note ---
DATE: 08/12/2019 SUBJECTIVE: The patient had pseudoseizures workup at [facility] about 2 to 3 weeks ago. No seizures were actually recorded although he had multiple events. Today he is having "less seizures." PHYSICAL EXAMINATION: MENTAL STATUS: He is alert and awake. IMPRESSION: Pseudoseizures. No real seizures. The patient can be discharged tomorrow on his Depakote dose, phenobarbital dose, his Keppra dose, and Ativan 1 mg p.o. b.i.d. p.r.n. anxiety. He will have to see his psychiatrist and/or neurologist right away in [place] and his Keppra should be tapered. He may need tapering of his Depakote and his phenobarbital. PLAN: As above. Aniceto Orellana MD DR: ANDRY JOB#: [id number] CC:
[2019-08-12] MEDS ORDERED: levETIRAcetam 1,000mg/NS100ml 100 ML IVPB SCH (21:00)
[2019-08-13] VITALS: BP 119/68
[2019-08-13 04:00] VITALS: BP 129/66
[2019-08-13] MEDS: LORazepam 1mg tab ORAL PRN (06:46)
[2019-08-13] MEDS ORDERED: Tubing IV Secondary IV ONE ×2 (06:59)
[2019-08-13] MEDS ORDERED: NS 275ml ONE ×2 (06:59)
--- NOTE | 2019-08-13 07:00 | NUR ---
NURSE NOTES: DISCHARGED HOME VIA FAMILY VEHICLE, ACCOMPANIED BY PARENT, MRS. WATTERS; IV ACCESS RIGHT AC DC'D, DRESSING APPLIED, TOLERATED WELL. HOSPITAL ID REMOVED, BELONGINGS LIST SIGNED BY PARENT, DISCUSSED PRESCRIBED MEDICATIONS WITH PATIENT AND MOTHER REGARDING SIDE EFFECTS; ENCOURAGED PATIENT TO FOLLOW UP WITH MD UPON ARRIVING TO [place], PATIENT AND MOTHER VERBALIZED UNDERSTANDING. VITAL SIGNS STABLE, AFEBRILE. NO SEIZURE ACTIVITY NOTED THROUGHOUT THE NIGHT.
[2019-08-13] MEDS ORDERED: Depakote ER 500mg tab ORAL SCH (09:00)
--- NOTE | 2019-08-15 11:46 | NUR ---
*-* INSURANCE *-* UPDATED CLINICALS NO DISCHARGE SUMMARY IN THE SYSTEM YET. [facility] AUTH#[id number] [employer] T: [phone] EXT:[id number] F:[phone] (FAX ALL CLINICALS)
--- NOTE | 2019-08-15 12:06 | Discharge Summary ---
Discharge Summary Discharge Summary _ DATE OF ADMISSION: 08/10/2019 DATE OF DISCHARGE: 08/13/2019 DISCHARGED BY: Dr. Reid REASON FOR ADMISSION: 24 years old male with past medical history of seizure disorder and psychiatric history, presented to emergency department after witnessed seizure episode. Patient initially had partial seizure and then converted to full tonic-clonic seizure. Patient had 3 additional seizure in route to the hospital. Patient received 5 mg of Versed and on arrival was postictal. Patient usually takes Depakote and phenobarbital for seizure and was compliant with medication. Upon evaluation patient was postictal, tachycardic and required 100 percent nonrebreathing mask. Patient had additional seizure in the emergency department and received multiply doses of Ativan along with loading dose of Dilantin. Laboratory work-up revealed no leukocytosis , stable electrolytes , hemoglobin and hematocrit. EKG revealed sinus rhythm , no acute ischemic changes. Patient subsequently admitted to telemetry floor in serious condition CONSULTANTS: neurologist Dr. Orellana psychiatrist [facility]: Patient admitted to telemetry floor. Neurologist seen and evaluated patient. Patient was resumed on phenobarbital and Depakote. Keppra was added to existing regimen. Neurologist recommended to transfer patient to [facility] for continuous EEG. EEG at this facility was consistent with encephalopathy of moderate degree with a high probability of toxic encephalopathy , as evidenced by the drug spindles. doxepin dose. 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 He cleared patient for discharge on Depakote , phenobarbital , Keppra and Ativan as needed for anxiety. Patient will need to follow-up with neurologist and psychiatrist as outpatient ' and Keppra subsequently should be tapered down. Psychiatrist followed. Per psychiatrist , patient had major depressive disorder and anxiety. Reality orientation supportive therapy provided. Patient clinically stabilized and was ready for discharge. FINAL DIAGNOSES: Recurrent /intractable seizure Altered mental status Major depressive disorder Anxiety History of substance abuse DISCHARGE MEDICATIONS: See Medication Reconciliation list. DISCHARGE INSTRUCTIONS: Patient was discharged home. Follow-up with primary care provider, neurologist and psychiatrist as outpatient I have been assigned to dictate discharge summary for this account. I was not involved in the patient's management. Yamileth Motta NP Aug 15, 2019 12:06
--- NOTE | 2019-08-16 15:13 | NUR ---
*-* INSURANCE *-* DISCHARGE SUMMARY HAS BEEN FAXED: [facility] AUTH#[id number] [employer]IST[employer] T: [phone] EXT:[id number] F:[phone] (FAX ALL CLINICALS)
== END 2019-08-13 07:00 | disposition home or self-care (01) | DRG 100 ==
LOC: EDBD 00:55 → EMR 01:17 → EDBEDREQ 04:36 → 2E 06:32 → ICU 09:20 → 2E 08-12 17:36
DX: G40.909 Epilepsy, unspecified, not intractable, without status epilepticus (principal); G92 Toxic encephalopathy; Z88.1 Allergy status to other antibiotic agents; F41.9 Anxiety disorder, unspecified; F10.10 Alcohol abuse, uncomplicated; F14.10 Cocaine abuse, uncomplicated; F32.9 Major depressive disorder, single episode, unspecified
CPT/HCPCS: 36415; 70450; 80048; 80053; 80164; 80184; 80307; 82553; 82962; 84146; 85025; 93005; 95819; 96361; 96365; 96375; 99291; G0480; J1165; J2405; J7030